=== PATIENT | male | born 1990 | race Caucasian/White ===

== ENCOUNTER 2022-03-21 20:14 | Emergency (ER) | payer SELFPAY ==
[2022-03-21] MEDS ORDERED: morphine INJ 10 MG/ML 1ML (SYR OR VIAL) IVP STA (20:23)
[2022-03-21] MEDS ORDERED: LACTATED RINGERS 1,000 ML IV STA (20:23)
--- NOTE | 2022-03-21 20:27 | ED Abdominal Pain ---
General Chief Complaint: Abdominal/GI Problems Stated Complaint: ABD PAIN, VOMITTING Source of Information: Patient Exam Limitations: No Limitations History of Present Illness Date Seen by Provider: Mar 21, 2022 Time Seen by Provider: 20:20 Initial Comments 31-year-old male with past medical history of prior hernia repair in his abdomen coming in due to periumbilical abdominal pain radiating down to his groin that started a few months ago, worsening over the past couple days. Now associated with nonbloody nonbilious vomiting over the past couple days. Very constipated but did have a normal bowel movement after quite a bit of time this morning. Does not believe he is been passing flatus since then. Pain is moderate, sharp, nothing really seems to make it better or worse. He states his testicles are normal and they are not swollen or painful. Allergies and Home Medications Allergies Coded Allergies: No Allergy Information Available (Unverified , 10/12/18) Patient Home Medication List Home Medication List Reviewed: Yes Review of Systems Review of Systems Constitutional: No fever EENTM: No Symptoms Reported Respiratory: No Symptoms Reported Cardiovascular: No Symptoms Reported Gastrointestinal: See HPI Genitourinary: No Symptoms Reported Musculoskeletal: no symptoms reported Skin: no symptoms reported Psychiatric/Neurological: No Symptoms Reported Endocrine: No Symptoms Reported Past Jkehztv-Rcvsqu-Htfmot Hx Patient Social History Tobacco Use?: No Use of E-Cig and/or Vaping dev: No Substance use?: No Alcohol Use?: Yes Alcohol Frequency: Once in a while Physical Exam Vital Signs Vital Signs - First Documented 03/21/22 20:18 Temp 35.8 Pulse 96 Resp 18 B/P (MAP) 135/93 (107) Pulse Ox 98 O2 Delivery Room Air Capillary Refill : Height/Weight/BMI Height: '" Weight: lbs. oz. kg; BMI Method: General Appearance: WD/WN, mild distress HEENT: PERRL/EOMI, normal ENT inspection, pharynx normal Neck: non-tender, full range of motion, supple, normal inspection Respiratory: chest non-tender, lungs clear, normal breath sounds, no respiratory distress, no accessory muscle use Cardiovascular: regular rate, rhythm, no edema, no murmur Gastrointestinal: normal bowel sounds; No distended, No guarding, No rebound; tenderness Extremities: normal range of motion, non-tender, normal inspection, no pedal edema, no calf tenderness, normal capillary refill Back: normal inspection, no CVA tenderness Neurologic/Psychiatric: no motor/sensory deficits, alert, normal mood/affect Skin: normal color, warm/dry Progress/Results/Core Measures Results/Orders Lab Results Laboratory Tests Test 03/21/22 20:25 03/21/22 20:36 Range/Units White Blood Count 13.9 H 4.3-11.0 10^3/uL Red Blood Count 5.79 H 4.30-5.52 10^6/uL Hemoglobin 16.9 13.3-17.7 g/dL Hematocrit 50 40-54 % Mean Corpuscular Volume 86 80-99 fL Mean Corpuscular Hemoglobin 29 25-34 pg Mean Corpuscular Hemoglobin Concent 34 32-36 g/dL Red Cell Distribution Width 12.9 10.0-14.5 % Platelet Count 272 130-400 10^3/uL Mean Platelet Volume 9.2 9.0-12.2 fL Immature Granulocyte % (Auto) 0 % Neutrophils (%) (Auto) 50 42-75 % Lymphocytes (%) (Auto) 40 12-44 % Monocytes (%) (Auto) 8 0-12 % Eosinophils (%) (Auto) 1 0-10 % Basophils (%) (Auto) 0 0-10 % Neutrophils # (Auto) 6.9 1.8-7.8 10^3/uL Lymphocytes # (Auto) 5.6 H 1.0-4.0 10^3/uL Monocytes # (Auto) 1.1 H 0.0-1.0 10^3/uL Eosinophils # (Auto) 0.1 0.0-0.3 10^3/uL Basophils # (Auto) 0.1 0.0-0.1 10^3/uL Immature Granulocyte # (Auto) 0.1 0.0-0.1 10^3/uL Sodium Level 135 135-145 MMOL/L Potassium Level 4.3 3.6-5.0 MMOL/L Chloride Level 97 L 98-107 MMOL/L Carbon Dioxide Level 25 21-32 MMOL/L Anion Gap 13 5-14 MMOL/L Blood Urea Nitrogen 11 7-18 MG/DL Creatinine 1.04 0.60-1.30 MG/DL Estimat Glomerular Filtration Rate 97 BUN/Creatinine Ratio 11 Glucose Level 77 70-105 MG/DL Calcium Level 9.1 8.5-10.1 MG/DL Corrected Calcium 8.7 8.5-10.1 MG/DL Total Bilirubin 0.6 0.1-1.0 MG/DL Aspartate Amino Transf (AST/SGOT) 22 5-34 U/L Alanine Aminotransferase (ALT/SGPT) 30 0-55 U/L Alkaline Phosphatase 121 40-136 U/L Total Protein 7.1 6.4-8.2 GM/DL Albumin 4.5 3.2-4.5 GM/DL Lipase 35 8-78 U/L Smear Scan OK Urine Color PALE YELLOW Urine Clarity CLEAR Urine pH 6.0 5-9 Urine Specific [place]ter <=1.005 1.016-1.022 Urine Protein NEGATIVE NEGATIVE Urine Glucose (UA) NEGATIVE NEGATIVE Urine Ketones NEGATIVE NEGATIVE Urine Nitrite NEGATIVE NEGATIVE Urine Bilirubin NEGATIVE NEGATIVE Urine Urobilinogen 0.2 < = 1.0 MG/DL Urine Leukocyte Esterase NEGATIVE NEGATIVE Urine RBC (Auto) NEGATIVE NEGATIVE Urine RBC NONE /HPF Urine WBC 0-2 /HPF Urine Squamous Epithelial Cells NONE /HPF Urine Crystals NONE /LPF Urine Bacteria NEGATIVE /HPF Urine Casts NONE /LPF Urine Mucus NEGATIVE /LPF Urine Culture Indicated NO My Orders Orders - NJ HANNON MD Ct Abdomen/Pelvis W (03/21/22 20:23) Cbc With Automated Diff (03/21/22 20:23) Comprehensive Metabolic Panel (03/21/22 20:23) Lipase (03/21/22 20:23) Ua Culture If Indicated (03/21/22 20:23) Ed Iv/Invasive Line Start (03/21/22 20:23) Morphine Injection (Morphine Injection (03/21/22 20:23) Ondansetron Injection (Zofran Injectio (03/21/22 20:30) Lactated Ringers (Lr 1000 Ml Iv Solution (03/21/22 20:23) Iohexol Injection (Omnipaque 350 Mg/Ml 1 (03/21/22 21:00) Received Contrast (Hold Metformin- Contr (03/21/22 21:00) Ns (Ivpb) (Sodium Chloride 0.9% Ivpb Bag (03/21/22 21:00) Medications Given in ED Current Medications Medications Dose Ordered Sig/Ladi Route Start Time Stop Time Status Last Admin Dose Admin Iohexol 100 ml ONCE ONCE IV 03/21/22 21:00 03/21/22 21:01 UNV 03/21/22 20:56 100 ML Ondansetron HCl 4 mg ONCE ONCE IVP 03/21/22 20:30 03/21/22 20:31 DC 03/21/22 20:32 4 MG Sodium Chloride 100 ml ONCE ONCE IV 03/21/22 21:00 03/21/22 21:01 UNV 03/21/22 20:57 80 ML Vital Signs/I&O 03/21/22 20:18 Temp 35.8 Pulse 96 Resp 18 B/P (MAP) 135/93 (107) Pulse Ox 98 O2 Delivery Room Air Progress Progress Note : Progress Note 31-year-old male with above history coming in due to abdominal pain with nausea and vomiting. ABCs were intact vitals are stable on presentation. Physical exam with abdominal tenderness but no signs of peritonitis. An IV was placed and basic labs were obtained including LFTs. His white blood cell count was slightly elevated but otherwise labs are essentially unremarkable. Concern would be for small bowel obstruction versus appendicitis versus colitis versus some other etiology. CT abdomen and pelvis with no acute findings. After IV morphine pain was a little bit better. Then given p.o. hydrocodone as well as IV Toradol help with pain. We will send prescription meds for nausea. I will have him follow-up with her surgeon to discuss getting a scope or further work- up otherwise. He was then discharged home in stable condition with strict return precautions Diagnostic Imaging Diagonstic Imaging: CT (abd/pelvis) Comments [facility], [place] NAME: CRISELDA RAMSEY [facility] REC#: [id number] PT STATUS: REG ER : 1990 PHYSICIAN: NJ HANNON MD ADMIT DATE: 03/21/22/ER FS Signed Date of Exam:03/21/22 CT ABDOMEN/PELVIS W PROCEDURE: CT abdomen and pelvis with contrast. TECHNIQUE: Multiple contiguous axial images were obtained through the abdomen and pelvis after administration of intravenous contrast. Auto Exposure Controls were utilized during the CT exam to meet ALARA standards for radiation dose reduction. All CT scans use one or more of the following dose optimizing techniques: automated exposure control, MA and/or KvP adjustment based on patient size and exam type or iterative reconstruction. INDICATION: Abdominal pain, vomiting, hernia and constipation. COMPARISON is made with prior exam of 10/12/2018 FINDINGS: The heart size is normal. The lung bases are clear. The liver is normal in size without focal lesions. The gallbladder is unremarkable. There is no biliary ductal dilatation. The spleen is normal. The pancreas, adrenal glands and kidneys are unremarkable. The aorta is nonaneurysmal. The bowel gas pattern is nonspecific. There is no free air. There is no ascites. There are no focal inflammatory changes. Bladder is normal. There is no pelvic mass, adenopathy or free fluid. There is no CT evidence of appendicitis. There appears to be a small fat-containing right inguinal hernia. The osseous structures are unremarkable. IMPRESSION: No acute abnormality in the abdomen or pelvis. Small fat-containing right inguinal hernia. Dictated by: Dictated on workstation # [id number] Dict: 03/21/222057 Trans: 03/21/222114 [id number] Interpreted by: REY ANGELA MD Electronically signed by: REY ANGELA MD 03/21/222114 Departure Impression Primary Impression: Abdominal pain Qualified Codes: R10.84 - Generalized abdominal pain Additional Impression: Vomiting in adult Disposition: HOME, SELF-CARE Condition: Stable Departure-Patient Inst. Decision time for Depature: 21:29 Referrals: SUNIL HAYES DO NO,LOCAL PHYSICIAN (PCP) Primary Care Physician Patient Instructions: Constipation, Adult (DC), Nausea and Vomiting, Adult (DC) Add. Discharge Instructions: The CT scan does not show anything concerning. You have a very small fat- containing hernia in your groin which is not concerning. The vomiting could be from a GI illness. Nausea medicines were sent to your pharmacy. Call Dr. Hayes who is numbers in this paperwork for an evaluation and to see if he would like to do any type of scope. Scripts Dicyclomine HCl (Dicyclomine HCl) 10 Mg Capsule 20 MG PO QID for 30 Days, #240 CAP Prov: NJ HANNON MD 03/21/22 Ondansetron (Ondansetron Odt) 4 Mg Tab.rapdis 4 MG SL Q6H PRN for NAUSEA/VOMITING for 5 Days, #20 TAB Prov: NJ HANNON MD 03/21/22 Work/School Note: Work Release Form Date Seen in the Emergency Department: Mar 21, 2022 Return to Work: Mar 23, 2022 Restrictions: No Restrictions NJ HANNON MD Mar 21, 2022 20:27
[2022-03-21 20:30] LABS: BASOPHILS # (AUTO) 0.1 10^3/uL (0.0-0.1); BASOPHILS % (AUTO) 0 % (0-10); EOSINOPHILS # (AUTO) 0.1 10^3/uL (0.0-0.3); EOSINOPHILS % (AUTO) 1 % (0-10); HEMATOCRIT 50 % (40-54); HEMOGLOBIN 16.9 g/dL (13.3-17.7); LYMPHOCYTES # (AUTO) 5.6 10^3/uL (1.0-4.0); LYMPHOCYTES % (AUTO) 40 % (12-44); MEAN CORPUSCULAR HEMOGLOBIN 29 pg (25-34); MEAN CORPUSCULAR HGB CONC 34 g/dL (32-36); MEAN CORPUSCULAR VOLUME 86 fL (80-99); MEAN PLATELET VOLUME 9.2 fL (9.0-12.2); MONOCYTES # (AUTO) 1.1 10^3/uL (0.0-1.0); MONOCYTES % (AUTO) 8 % (0-12); NEUTROPHILS # (AUTO) 6.9 10^3/uL (1.8-7.8); NEUTROPHILS % (AUTO) 50 % (42-75); PLATELET COUNT 272 10^3/uL (130-400); WHITE BLOOD COUNT 13.9 10^3/uL (4.3-11.0)
[2022-03-21] MEDS ORDERED: ONDANSETRON 4 MG/2 ML (SDV) Z0FRAN IVP ONE (20:30)
[2022-03-21 20:42] LABS: BILIRUBIN,URINE NEGATIVE (NEGATIVE); CLARITY,URINE CLEAR; GLUCOSE, URINE (UA) NEGATIVE (NEGATIVE); KETONES,URINE NEGATIVE (NEGATIVE); LEUKOCYTE ESTERASE ,URINE NEGATIVE (NEGATIVE); NITRITE,URINE NEGATIVE (NEGATIVE); PROTEIN,URINE NEGATIVE (NEGATIVE)
[2022-03-21 20:47] LABS: BACTERIA,URINE NEGATIVE /HPF; COLOR,URINE PALE YELLOW; WBC,URINE 0-2 /HPF
[2022-03-21 20:54] LABS: ALBUMIN 4.5 GM/DL (3.2-4.5); BILIRUBIN,TOTAL 0.6 MG/DL (0.1-1.0); CALCIUM 9.1 MG/DL (8.5-10.1); CREATININE SERUM 1.04 MG/DL (0.60-1.30); POTASSIUM 4.3 MMOL/L (3.6-5.0); TOTAL PROTEIN 7.1 GM/DL (6.4-8.2)
[2022-03-21 21:00] LABS: SMEAR SCAN COMMENT OK
[2022-03-21] MEDS ORDERED: IOHEXOL 350 MG/ML 100 ML (OMNIPAQUE 350) VIAL IV ONE (21:00)
[2022-03-21] MEDS ORDERED: HOLD METFORMIN - RECEIVED CONTRAST 20 ML VIAL IV SCH (21:00)
[2022-03-21] MEDS ORDERED: NS 100 ML (IVPB) BAG IV ONE (21:00)
--- NOTE | 2022-03-21 21:04 | Diagnostic Imaging Report ---
PROCEDURE: CT abdomen and pelvis with contrast. TECHNIQUE: Multiple contiguous axial images were obtained through the abdomen and pelvis after administration of intravenous contrast. Auto Exposure Controls were utilized during the CT exam to meet ALARA standards for radiation dose reduction. All CT scans use one or more of the following dose optimizing techniques: automated exposure control, MA and/or KvP adjustment based on patient size and exam type or iterative reconstruction. INDICATION: Abdominal pain, vomiting, hernia and constipation. COMPARISON is made with prior exam of 10/12/2018 FINDINGS: The heart size is normal. The lung bases are clear. The liver is normal in size without focal lesions. The gallbladder is unremarkable. There is no biliary ductal dilatation. The spleen is normal. The pancreas, adrenal glands and kidneys are unremarkable. The aorta is nonaneurysmal. The bowel gas pattern is nonspecific. There is no free air. There is no ascites. There are no focal inflammatory changes. Bladder is normal. There is no pelvic mass, adenopathy or free fluid. There is no CT evidence of appendicitis. There appears to be a small fat-containing right inguinal hernia. The osseous structures are unremarkable. IMPRESSION: No acute abnormality in the abdomen or pelvis. Small fat-containing right inguinal hernia. Dictated by: Dictated on workstation # [id number]
[2022-03-21] MEDS ORDERED: DICY10CA12 PO (21:32)
[2022-03-21] MEDS ORDERED: ONDA4TAB11 SL (21:32)
[2022-03-21 21:33] VITALS: BP 135/93
[2022-03-21] MEDS ORDERED: HYDROcodone/APAP 5 MG/325 MG (LORTAB) TAB PO ONE (21:45)
[2022-03-21] MEDS ORDERED: KETOROLAC 15 MG/ML VIAL IVP ONE (21:45)
== END 2022-03-21 21:42 | disposition home or self-care (01) ==
LOC: EDUNIT# 20:14 → ER FS 20:16
DX: R10.33 Periumbilical pain (principal); R11.2 Nausea with vomiting, unspecified; D72.829 Elevated white blood cell count, unspecified; Z28.310 Unvaccinated for COVID-19; Z98.890 Other specified postprocedural states
CPT/HCPCS: 36415; 74177; 80053; 81000; 83690; 85025

== ENCOUNTER 2022-03-30 06:24 | Outpatient (CLI) | payer SELFPAY ==
[~2022-03-30] VITALS: Ht 188 cm; Wt 105.2 kg
[~2022-03-30 06:24] MED LIST: DICY10CA12 PO; ONDA4TAB11 SL
== END 2022-03-30 14:16 ==
LOC: PREOP 06:24
PROVIDERS: ATTEND Surgery
DX: Z01.818 Encounter for other preprocedural examination (principal)

== ENCOUNTER → 2022-03-31 | Outpatient (CLI) | payer OTHER ==
--- NOTE | 2022-03-31 11:53 | Diagnostic Imaging Report ---
PROCEDURE: US Gallbladder. TECHNIQUE: Multiple real-time grayscale images were obtained over the right upper quadrant in various projections. INDICATION: Epigastric pain. COMPARISON: None FINDINGS: The liver is normal in size, shape and echo texture. Portal vein shows normal hepatopetal flow. No focal hepatic masses are seen. There is no sonographic evidence of intrahepatic biliary duct dilatation. Common bile duct is not well visualized. There is no evidence of cholelithiasis, gallbladder wall thickening, or pericholecystic fluid. The pancreas is not well visualized due to overlying bowel gas. There is no ascites. The right kidney measures approximately 9.7 cm in length and has a normal appearance. Visualized portions of abdominal IVC are unremarkable. Aorta is not w.ell visualized IMPRESSION: 1. Somewhat limited exam due to poor acoustic windows. 2. No cholelithiasis or sonographic evidence of acute cholecystitis Dictated by: Dictated on workstation # [id number]
== END ==
LOC: RAD 08:50
PROVIDERS: ATTEND Surgery
DX: R10.13 Epigastric pain (principal)
CPT/HCPCS: 76705

== ENCOUNTER → 2022-04-04 | Outpatient (CLI) | payer OTHER ==
[~2022-04-04] MED LIST changes: +CATHETER FLUSH 10 ML SYR IVP PRN
--- NOTE | 2022-04-04 12:36 | Diagnostic Imaging Report ---
INDICATION: Epigastric pain. TECHNIQUE: Patient was administered 5.4 mCi technetium-99m Choletec intravenously, and imaging over the abdomen was performed. At 1 hour, patient ingested 8 ounces of Ensure and gallbladder ejection fraction was calculated. FINDINGS: There is homogeneous uptake of activity by the liver with prompt excretion of activity into the gallbladder and common duct. There is normal passage of activity into the small bowel. Gallbladder ejection fraction is normal at 60%. IMPRESSION: Normal HIDA scan and gallbladder ejection fraction. Dictated by: Dictated on workstation # [id number]
== END ==
LOC: CARD 09:29
PROVIDERS: ATTEND Surgery
DX: R10.13 Epigastric pain (principal)
CPT/HCPCS: 78227; A9537

== ENCOUNTER 2022-04-13 05:34 | Outpatient (CLI) | payer SELFPAY ==
[~2022-04-13] VITALS: Ht 188 cm; Wt 105.2 kg
[~2022-04-13 05:34] MED LIST changes: -CATHETER FLUSH 10 ML SYR IVP PRN
== END 2022-04-14 12:53 | disposition home or self-care (01) ==
LOC: PREOP 05:34
PROVIDERS: ATTEND Surgery
DX: Z01.818 Encounter for other preprocedural examination (principal)

== ENCOUNTER 2022-04-20 09:59 | Day surgery (SDC) | payer OTHER ==
[2022-04-20] VITALS (11 sets, daily range): BP systolic 116–157; BP diastolic 84–111
[~2022-04-20] VITALS: Ht 188 cm; Wt 105.2 kg
[2022-04-20] MEDS ORDERED: LACTATED RINGERS 1,000 ML IV STA (10:07)
[2022-04-20] MEDS ORDERED: ceFAZolin INJECTION 2,000 MG in NS (IVPB) 50 ML IV ONE (10:15)
[2022-04-20] MEDS ORDERED: HURRICAINE EXT TUBE (BENZOCAINE) XX PRN (10:15)
[2022-04-20] MEDS: LACTATED RINGERS 1,000 ML IV PRN ×2 (10:34→13:45)
--- NOTE | 2022-04-20 11:34 | Progress Note-Pre Operative ---
Pre-Operative Progress Note Date of Available H&P: Apr 07, 2022 Date H&P Reviewed: Apr 20, 2022 Time H&P Reviewed: 11:31 History & Physical: H&P Reviewed, Patient Examed, No changes noted Pre-Operative Diagnosis: Incarcerated Umbilical hernia, Right inguinal hernia, Gastritis SUNIL HAYES DO Apr 20, 2022 11:34
[2022-04-20] MEDS ORDERED: BUP/EPI 0.5% 1:200,000 (SENSORCAINE) 30 ML VIAL ONE (11:53)
[2022-04-20] MEDS ORDERED: MIDAZOLAM 2 MG/2 ML (VERSED) VIAL ONE (12:21)
[2022-04-20] MEDS ORDERED: fentaNYL INJ 100 MCG/2 ML AMP ONE (12:21)
[2022-04-20] MEDS ORDERED: ROCURONIUM 50 MG/5 ML (ZEMURON) VIAL IV ONE ×2 (12:58→13:51)
[2022-04-20] MEDS ORDERED: SEVOFLURANE (ULTANE) 15 ML INHAL SOLN ONE (12:58)
[2022-04-20] MEDS ORDERED: ONDANSETRON 4 MG/2 ML (SDV) Z0FRAN ONE (12:58)
[2022-04-20] MEDS ORDERED: proPOfol 200 MG/20 ML (DIPRIVAN) VIAL IV ONE (12:58)
[2022-04-20] MEDS ORDERED: BUP/EPI 0.5% 1:200,000 (SENSORCAINE) 30 ML VIAL INJ ONE (13:04)
[2022-04-20] MEDS ORDERED: GLYCOPYRROLATE 0.2 MG/ML (ROBINUL) 2 ML VIAL ONE (14:03)
[2022-04-20] MEDS ORDERED: NEOSTIGMINE (BLOXIVERZ ) 1 MG/1ML 10 ML VIAL ONE (14:03)
--- NOTE | 2022-04-20 14:16 | Anesthesia-General Post-Op ---
General Patient Condition Mental Status/LOC: Same as Preop Cardiovascular: Satisfactory Nausea/Vomiting: Absent Respiratory: Satisfactory Pain: Controlled Complications: Absent Post Op Complications Complications None Follow Up Care/Instructions Patient Instructions None needed. Anesthesia/Patient Condition Patient Condition Patient is doing well, no complaints, stable vital signs, no apparent adverse anesthesia problems. No complications reported per nursing. LUIS MIGUEL MCKEON CRNA Apr 20, 2022 14:16
[2022-04-20] MEDS ORDERED: morphine INJ 10 MG/ML 1ML (SYR OR VIAL) ONE (14:20)
--- NOTE | 2022-04-20 14:27 | Progress Note-Post Operative ---
Post-Operative Progess Note Surgeon (s)/Community Relations Advisor (s) Surgeon SUNIL HAYES DO Community Relations Advisor: Zandra Pre-Operative Diagnosis Incarcerated Umbilical hernia, Right inguinal hernia, Gastritis Post-Operative Diagnosis Incarcerated right inguinal hernia Incarcerated umbilical hernia Cord lipoma Procedure & Operative Findings Date of Procedure 04/20/22 Procedure Performed/Findings PROCEDURE: Laparoscopic right inguinal hernia repair with mesh Laparoscopic umbilical herniarraphy with mesh placement, Less than 3cm Exicision of cord lipoma COMPLICATIONS: None. INDICATIONS: The patient is a 31, male with an incarcerated right inguinal hernia and incarcerated umbilical hernia, which have continued to increase in size and cause discomfort. The patient was explained the risk and benefits of the procedure and wished to proceed with the procedure. Consent was signed on the chart. After informed consent was obtained, the patient was brought to the operating room and placed on the operating table in a supine position. He was sterilely prepped and draped in a normal fashion. Local lidocaine was used to infiltrate the skin at the umbilicus. I made an incision with #11 blade, carried down to the skin into subcutaneous tissue and then deepened down the subcutaneous tissue with Bovie electrocautery down to the fascia. Fascia was incised with Bovie electrocautery and bluntly entered the abdomen (actually through the umbilical hernia), swept a finger around to take down the omentum that was stuck in the umbilical hernia. Placed 0 Vicryl [id number]-[id number] suture and placed Kii trocar port under direct visualization. Created pneumoperitoneum, able to visualize the hernia and took a picture of this and then placed two 8 mm ports about 10 cm on either side of the midline port using a local lidocaine, 11 blade for stab incision and then advanced the robotic port under direct visualization. Once this was in, I then placed the patient in Trendelenburg and then placed the working instruments, the fenestrated bipolar and the scissors. Looked on the left side and saw signs of left inguinal hernia repair. I could see a indirect hernia defect on the right side. Next, I came across the peritoneum approximate ly 8 cm away from the hernia defect, going across laterally starting lateral about 17cm and cutting toward the median umbilical ligament. I then carefully dissected the visceral peritoneum away and down and then in the midline, went through the parietal side and dissected down to the pubic tubercle, dissecting this down carefully pushing the peritoneum away, I was able to then visualize the pubic tubercle and Loki's ligament. I went 2 cm posterior and at this point, we then had a critical view of the dissection, able to dissect 2 cm across the midline to the right side, 2 cm posterior to the Loki's ligament, able to then parietalize the vas deferens and spermatic vessels right at the groove between Loki's and iliac vein and able to dissect, make sure there was no peritoneum between those two, able to see the indirect hernia space, took a picture of this, looked at the f emoral space (no hernia seen). Then I carefully teased out the hernia sac and could visualize the indirect hernia space. Next I looked on the cord and cord structures. There was a large cord lipoma that I was able to reduce and cut off. This was then removed throught the port to get it out of the peritoneal space. I could clearly see the inguinal canal and the indirect space. Next I carried the posterior lateral dissection all the way out and then placed a 12 x 17 Midwieght Bard 3DMax mesh. It laid in nicely, covered the hernia defect and the rest of the area. It was above the peritoneum, sutured it at the pubic tubercle with a 3-0 Vicryl suture and tied this off. This appeared to lay in very nicely. I then brought down the pneumoperitoneum to about 8 mmHg and then started closing the peritoneum. Started laterally and used a 2-0 V-lock barbed suture to start a running stitch to close the peritoneum. This was closed nicely, took a picture of the closure at this point, then removed both needles had switched to a suture belly dump driver from the scissors. DESCRIPTION OF PROCEDURE: Umbilical hernia I had gone through the hernia, it was less than 3cm defect; had already reduced the omentum. The defect was then closed using the 0 Vicryl figure of eight placed at the beginning of the case. Echo Ventralight mesh was then inserted in the abdomen grabbed through umbilical incision. The balloon was inflated on the mesh. Circumferential tacks were placed with a SecureStrap Tacker. The balloon was then removed and inner crown was created as well. The mesh was tacked with pressure being decreased. The abdomen was then desufflated,the trocars were removed. The skin was then closed using 4-0 Monocryl in a running subcuticular fashion. The abdomen was washed and dried and Skin Affix was placed over the incisions. The patient tolerated procedure well without any complications. The sponge, instrument and needle count was correct at the end of the case. He was taken to recovery room in stable condition. Dr. De Paz assisted during this surgery by making incisions, closing incisions, helping to identify anatomy and passing/retrieving suture and needles. Anesthesia Type GET Estimated Blood Loss Estimated blood loss (mL): scant Specimens/Packing Specimens Removed cord lipoma SUNIL HAYES DO Apr 20, 2022 14:27
[2022-04-20] MEDS ORDERED: fentaNYL INJ 100 MCG/2 ML AMP IVP ONE (14:30)
[2022-04-20] MEDS ORDERED: MEPERIDINE (DEMEROL) INJ 50 MG/ML IVP ONE (14:30)
[2022-04-20] MEDS ORDERED: ONDANSETRON 4 MG/2 ML (SDV) Z0FRAN IVP PRN (14:30)
[2022-04-20] MEDS ORDERED: PROMETHAZINE INJ 25 MG/ML (PHENERGAN) AMP IVP ONE (14:30)
[2022-04-20] MEDS ORDERED: morphine INJ 10 MG/ML 1ML (SYR OR VIAL) IVP ONE (14:30)
[2022-04-20] MEDS ORDERED: HYDROmorphone 2 MG/ML VIAL (DILAUDID) IV ONE (14:30)
[2022-04-20] MEDS ORDERED: ACHYD1T PO (14:31)
--- NOTE | 2022-04-20 14:31 | Progress Note-Post Operative ---
Post-Operative Progess Note Surgeon (s)/Fork Lift Technician (s) Surgeon SUNIL HAYES DO Fork Lift Technician: none Pre-Operative Diagnosis Gastritis Post-Operative Diagnosis Gastritis Duodenitis Hiatal hernia Procedure & Operative Findings Date of Procedure 04/20/22 Procedure Performed/Findings PROCEDURE NOTE: After informed consent was obtained, the patient was already in the OR suite, in the supine position, intubated for the other procedures. The scope was inserted down the mouth through the esophagus into the stomach. On the way down, noted some mild esophagitis, took a picture, pushed into the stomach and pushed past the antrum into the duodenum. Duodenum looked like there was some inflammation; biopsy done. Pulled back and did a biopsy of the antrum, then retroflexed the scope, saw a small hiatal hernia, took a picture of this and noted some inflammation of the cardia; biopsy done. Then pulled the scope into the GE junction, took another picture of the hiatal hernia and then did a biopsy of the GE junction. Pushed the scope back into the stomach, suctioned all the air out of the stomach. At this point pulled the scope up the esophagus and out the mouth. The patient tolerated the procedure, and he recovered in PACU. Anesthesia Type GET Estimated Blood Loss Estimated blood loss (mL): scant Specimens/Packing Specimens Removed duodenal bx antral bx Cardia bx GE jxn bx SUNIL HAYES DO Apr 20, 2022 14:30
--- NOTE | 2022-04-20 14:32 | Endoscopy Discharge Instruct ---
Endo Procedure/Findings Findings 1.: Gastritis 2.: Other Findings (Duodenitis) 3.: Hiatal Hernia Discharge Instructions - Activity: You might feel a little sleepy until tomorrow. This is due to the medicine you received to relax you. Until tomorrow, you should: NOT drive a car, operate machinery or power tools. NOT drink any alcoholic beverages. NOT make any important decisions or sign importortant papers. Do not return to work until tomorrow, unless otherwise instructed. Resume previous activities tomorrow. Diet: Start by taking liquids. If you tolerate liquids, advance to solid food. 1.: EGD in 3 years Notify Physician - If you experience excessive bleeding, unusual abdominal pain, fever, or chest pain, contact your doctor immediately. SUNIL HAYES DO Apr 20, 2022 14:32
--- NOTE | 2022-04-20 14:33 | Discharge Inst-Surgical ---
Discharge Inst-Surgical Depart Medication/Instructions New, Converted or Re-Newed RX: Transmitted to Pharmacy Patient Instructions Follow up Appt: Make appointment for 1 week. [phone] Instructions: No lifting greater than 20 pounds. No strenuous activity. May shower in 24 hours, no tub bath or soaking. Use incentive spirometer at home as directed. No Smoking Skin/Wound Care: May remove bandages in am. You need to leave the Dermabond on incision it will fall off on it's own. Symptoms to Report: Appetite Changes, Extremity Discoloration, Numbness/Tingling, Swelling Increased, Bleeding Excessive, Eyesight Changes, Pain Increased, Urine Color Change, Constipation(Persistent), Fever over 101 degree F, Pain/Pressure in chest, Urinating Difficulty, Cough Up/Vomit Blood, Heart Beat Irreg/Pounding, Pain/Pressure in jaw, Cramps in feet or legs, Lightheadedness, Pain/Pressure in shoulder, Diarrhea(Persistent), Memory Changes Suddenly, Questions/Concerns, Weight gain consecutive days, Dizziness/Fainting, Nausea/Vomiting, Shortness of Breath, Weight gain over 2 pounds If questions or concerns contact your physician Or seek help at emergency department. Activity Activity as Tolerated: Yes Activity Instructions: Avoid Stress to Incision Driving Instructions: No Driving/Refer to Dr. Light Discharge Diet: No Restrictions Diet After 24 Hours: Clear Liquid if Nauseous If Any Problems/Questions/Issu: Contact Your Physician, Go to Emergency Room Skin/Wound Care Infection Signs and Symptoms: Increased Redness, Foul Odor of Wound, Increased Drainage, Skin Itchy or Has a Rash, Increased Swelling, Temperature Above 101 F Wound Care Comment: Heating pad to shoulder or neck tonight for pain Stitches/[place]/Dermabond Dis: Dermabond Ice Pack: Ice On and Off Site SUNIL HAYES DO Apr 20, 2022 14:33
== END 2022-04-20 16:30 | disposition home or self-care (01) ==
LOC: SDC 09:59
PROVIDERS: ATTEND Surgery
DX: K40.30 Unilateral inguinal hernia, with obstruction, without gangrene, not specified as recurrent (principal); K42.0 Umbilical hernia with obstruction, without gangrene; K29.70 Gastritis, unspecified, without bleeding; K29.80 Duodenitis without bleeding; K44.9 Diaphragmatic hernia without obstruction or gangrene; K31.89 Other diseases of stomach and duodenum; D17.6 Benign lipomatous neoplasm of spermatic cord; Z87.891 Personal history of nicotine dependence; Z28.310 Unvaccinated for COVID-19
CPT/HCPCS: 43239; 49592; 49650; 87081; 94664; C1781 ×2

== ENCOUNTER → 2022-06-10 | Outpatient (CLI) | payer OTHER ==
[~2022-06-10] MED LIST changes: +ACHYD1T PO; +HOLD METFORMIN - RECEIVED CONTRAST 20 ML VIAL IV SCH; +IOHEXOL 350 MG/ML 100 ML (OMNIPAQUE 350) VIAL IV ONE; +NS 100 ML (IVPB) BAG IV ONE
--- NOTE | 2022-06-10 08:44 | Diagnostic Imaging Report ---
PROCEDURE: CT abdomen and pelvis with contrast. TECHNIQUE: Multiple contiguous axial images were obtained through the abdomen and pelvis after administration of intravenous contrast. Auto Exposure Controls were utilized during the CT exam to meet ALARA standards for radiation dose reduction. All CT scans use one or more of the following dose optimizing techniques: automated exposure control, MA and/or KvP adjustment based on patient size and exam type or iterative reconstruction. INDICATION: Hernia surgery in April, with continued pain. Comparison is made with prior CT from 03/21/2022. The lung bases are clear. The liver demonstrates mild generalized low-attenuation consistent with hepatic steatosis. Gallbladder is unremarkable. There is no biliary duct dilatation. Pancreas and spleen are unremarkable. No adrenal mass is identified. Kidneys are unremarkable. Aorta is nonaneurysmal. The small and large bowel loops are normal in caliber. The appendix is unremarkable. There is no ascites. No inflammatory changes are seen. There appears to be a small fat-containing inguinal hernia on the right. No herniated bowel loops are identified. IMPRESSION: No acute abnormality is detected. Dictated by: Dictated on workstation # [id number]
== END ==
LOC: RAD 07:45
PROVIDERS: ATTEND Nurse Practitioner
DX: R10.32 Left lower quadrant pain (principal)
CPT/HCPCS: 74177